=== PATIENT | male | born 1995 | race Caucasian/White ===

== ENCOUNTER 2016-10-08 08:19 | Emergency (ER) | payer OTHER, BC ==
[2016-10-08 08:27] VITALS: TEMP 97.9; O2SAT 95
--- NOTE | 2016-10-08 08:47 | EDPHY ---
H & P Time Seen by Provider: 10/08/16 08:29 HPI/ROS: CHIEF COMPLAINT: "Can I just get a refill of Adderall please?" HISTORY OF PRESENT ILLNESS: 21-year-old male took an Uber to the emergency department requesting a refill of Adderall. States that he has a history of anxiety and takes Xanax for anxiety and then will take Adderall in the morning "to help me wake up." He last filled a prescription of Adderall number 30 tablets 12 days ago, states that he sold majority of these tablets and has been self medicating with Xanax and cocaine. He is returning to his home in [place], [place] tomorrow where he plans to enter a detox facility and is requesting a refill of his Adderall prescription. He last used cocaine and Xanax a few hours ago. He denies: Chest pain, dyspnea, headache, neurologic deficits, suicidal or homicidal ideation. PHYSICAL EXAM (Prior to examination, patient consented to physical exam, hands were washed and my usual and customary physical exam procedures followed) 1) GENERAL: Well-developed, well-nourished, alert and oriented. Appears nontoxic . Somnolent 2) HEAD: Normocephalic 3) HEENT: sclera anicteric 4) LUNGS: Breathing comfortably. 5) NEURO: Awake, alert, and oriented to person, place and time. Answers questions appropriately. There were no obvious focal neurologic abnormalities. Normal steady gait. Smoking Status: Former smoker Constitutional: Initial Vital Signs Temperature (C) 36.6 C 10/08/16 08:23 Heart Rate 76 10/08/16 08:23 Respiratory Rate 18 10/08/16 08:23 Blood Pressure 128/81 H 10/08/16 08:23 O2 Sat (%) 95 10/08/16 08:23 O2 Delivery Mode Room Air Allergies/Adverse Reactions: No Known Allergies Allergy (Unverified 10/08/16 08:23) Home Medications: Medication Instructions Recorded Adderall Xr 30 mg Capsule 10/08/16 Xanax 10/08/16 MDM/Departure - [facility] ED Course/Re-evaluation: 8:49 a.m.: This patient has requested a refill of Adderall. He last filled a prescription for Adderall number 30 tablets 12 days ago but states that he sold a large majority these tablets , prescribed by his psychiatrist in [place] . He has been medicating with cocaine and Xanax. I do not feel comfortable prescribing this patient Adderall given his current history. He denies suicidal homicidal ideation. He is returning to [place] tomorrow and is planning on entering a detoxification facility at that time. I have had a lengthy discussion with him regarding the risks of cocaine use and the risks of polysubstance use and recommended not doing this in the future. He verbalized understanding of this. He denies suicidal homicidal - Depart Disposition: Home, Routine, Self-Care Clinical Impression: medication refill request Condition: Good Instructions: Medicine Refill (ED) Additional Instructions: Please avoid selling your prescription drugs, please do not use cocaine, please only take your medication as prescribed. Referrals: [facility] [Other] - As per Instructions
[2016-10-08 09:00] VITALS: BP 122/76; PULSE 75; RESP 16
== END 2016-10-08 09:00 | disposition home or self-care (01) ==
DX: Z76.0 Encounter for issue of repeat prescription (principal); Z87.891 Personal history of nicotine dependence